=== PATIENT | female | born 1935 | race African-American/Black ===

== ENCOUNTER 2016-07-27 16:38 | Emergency (ER) | payer MEDICAID, MEDICARE, OTHER ==
[~2016-07-27] VITALS: Ht 160 cm; Wt 56.2 kg
[~2016-07-27 16:38] MED LIST: ALPR0.5T PO; AMLO5TAB4 PO; ASCO500C PO; ASPI-39 PO; CALC1TAB PO; CARV12.5 PO; CRESTOR20 MG PO; ESOM40CA PO; HYDR-2868 PO; HYDR-965 PO; LOSA100T2 PO; MULT1TAB6 PO; OMEG-38 PO; TRIA1TAB2 PO
[2016-07-27 19:11] LABS: BASO % 1 % (0-3); EOS % 4 % (0-3); HEMATOCRIT 32.3 % (36.0-47.0); HEMOGLOBIN 10.5 g/dL (12.0-15.5); LYMPH # 1.4 x10^3/uL (1.0-4.8); LYMPH % 28 % (24-48); MEAN CORPUSCULAR HEMOGLOBIN 27 pg (25-35); MEAN CORPUSCULAR HGB CONC 32 g/dL (31-37); MEAN CORPUSCULAR VOLUME 82 fL (79-100); MONO % 10 % (0-9); NEUT % 58 % (31-73); PLATELET COUNT 178 x10^3/uL (140-400); RED BLOOD COUNT 3.94 x10^6/uL (3.50-5.40); RED CELL DISTRIBUTION WIDTH 14.8 % (11.5-14.5)
[2016-07-27 19:25] LABS: CALCIUM 9.8 mg/dL (8.5-10.1); CREATININE 1.2 mg/dL (0.6-1.0); GFR 52.3; POTASSIUM 3.7 mmol/L (3.5-5.1)
[2016-07-27 19:34] LABS: ALBUMIN 3.6 g/dL (3.4-5.0); TOTAL BILIRUBIN 0.2 mg/dL (0.2-1.0); TOTAL PROTEIN 7.1 g/dL (6.4-8.2)
--- NOTE | 2016-07-27 19:47 | RAD ---
INDICATION: 80-year-old female with left eye pain for 1 month, dizziness, headaches once a week, hypertension. COMPARISON: CT head dated April 25, 2012 TECHNIQUE: Axial, noncontrast CT images obtained through the head and facial bones. Coronal and sagittal reformats are provided of the facial bones. One or more of the following individualized dose reduction techniques were utilized for this examination: 1. Automated exposure control; 2. Adjustment of the mA and/or kV according to patient size; 3. Use of iterative reconstruction technique. FINDINGS: No acute intracranial process is identified, specifically no acute blood products, midline shift, mass effect or extra-axial fluid collections. Ventricles and sulci appear appropriate for patient's age. Basilar cisterns are maintained. Mastoid air cells are clear. No calvarial fracture is present. Overlying scalp is intact. No acute fracture or dislocation is seen within the facial bones. Chronic deformity of the medial sood of both orbits are stable, similar to the 2012 exam. Bilateral globes and orbits demonstrate no acute finding, unchanged from previous CT exam. No postseptal or intraconal stranding is present. Paranasal sinuses are clear without air-fluid level. Diffuse osteopenia is present. Degenerative changes seen within the visualized cervical spine. Nasal septum is midline. Overlying soft tissues demonstrate no acute inflammatory changes or focal fluid collection. IMPRESSION: 1. No acute intracranial process. 2. No acute facial bone fracture. Electronically signed by: Lakisha Skelton (Jul 27, 2016 19:46:42)
[2016-07-27] MEDS ORDERED: PRED20TA PO (21:38)
--- NOTE | 2016-07-27 21:38 | PHYS DOC ---
Past Medical History Past Medical History: Cancer, Hypertension Additional Past Medical Histor: lung CA Past Surgical History: Hysterectomy, Tonsillectomy, Other Additional Past Surgical Histo: right lung CA removal; left carpal tunnel Alcohol Use: None Drug Use: None Adult General Chief Complaint Chief Complaint: left eye pain HPI HPI Patient is a 80 year old female complaining of left eye pain and left eye bothering her today. Patient states that her left eye has been bothering her off and on for a couple of months. She saw her marketing forecaster who didn't think there is anything wrong with her eye. She had some sinus x-rays that didn't show anything. She saw her primary care doctor, Dr. Gould, and reports that her sedimentation rate was elevated and she was diagnosed with possible temporal arteritis, she was started on prednisone and her symptoms got quite a bit better while she was taking the prednisone. She took it for a week and her doctor rechecked her sedimentation rate and it was improved so her prednisone was stopped. That was about a week ago and since then her left eye has been bothering her again. She has an achy pain above her left eye. Today she felt like she saw a black spider in her vision but it is now gone. Her vision seems pretty good right now. She has a headache on the whole left side of her head, her left rastafari and left jaw area are sore and achy. She has not had a fever. She went home from work today because of her symptoms and when she went home she checked her blood pressure and it was elevated. She had reported the complaint of "palpitations" when triaged, however, I believe that was really the way she was describing her elevated blood pressure, because she did not have any complaint of any sensation of heart palpitations when I talked to her. Study Lead Dr. Cardona PCP Dr. Gould Review of Systems Review of Systems Constitutional: Denies fever or chills [] Eyes: As in history of present illness HENT: Denies nasal congestion or sore throat [] Respiratory: Denies cough or shortness of breath [] Cardiovascular: No chest pain or palpitations, complains of elevated blood pressure today GI: Denies abdominal pain, nausea, vomiting, bloody stools or diarrhea [] : Denies dysuria or hematuria [] Musculoskeletal: Denies back pain or joint pain [] Integument: Denies rash or skin lesions [] Neurologic: Denies focal weakness or sensory changes [] Current Medications Current Medications Current Medications Medications (Trade) Dose Ordered Sig/Enrique Start Time Stop Time Status Last Admin Dose Admin Prednisone (Prednisone) 60 mg 1X ONCE 07/27/16 21:45 07/27/16 21:46 DC 07/27/16 21:41 60 MG Allergies Allergies Allergies Coded Allergies Type Severity Reaction Last Updated Verified No Known Drug Allergies 05/06/13 No Physical Exam Physical Exam Constitutional: Well developed, well nourished, no acute distress, non-toxic appearance. Alert, mentating normally. HENT: Normocephalic, atraumatic, bilateral external ears normal, oropharynx moist, no oral exudates, nose normal. Left temporal artery is not palpable and nontender. Eyes: PERRLA, EOMI, conjunctiva normal, no discharge. No abnormality of lids or lashes, no swelling or redness around the left eye. Neck: Normal range of motion, no tenderness, supple, no stridor. [] Cardiovascular:Heart rate regular rhythm, no murmur [] Lungs & Thorax: Bilateral breath sounds clear to auscultation [] Skin: Warm, dry, no erythema, no rash. [] Extremities: No tenderness, no cyanosis, no clubbing, ROM intact, no edema. [] Neurologic: Alert and oriented X 3, normal motor function, normal sensory function, no focal deficits noted. [] Current Patient Data Vital Signs Vital Signs Date Time Temp Pulse Resp B/P Pulse Ox O2 Delivery O2 Flow Rate FiO2 07/27/16 21:40 52 20 161/70 100 Room Air 07/27/16 17:20 98.1 98.1 Lab Values Laboratory Tests Test 07/27/16 19:03 White Blood Count 5.0x10^3/uL (4.0-11.0) Red Blood Count 3.94x10^6/uL (3.50-5.40) Hemoglobin 10.5g/dL (12.0-15.5) L Hematocrit 32.3% (36.0-47.0) L Mean Corpuscular Volume 82fL (79-100) Mean Corpuscular Hemoglobin 27pg (25-35) Mean Corpuscular Hemoglobin Concent 32g/dL (31-37) Red Cell Distribution Width 14.8% (11.5-14.5) H Platelet Count 178x10^3/uL (140-400) Neutrophils (%) (Auto) 58% (31-73) Lymphocytes (%) (Auto) 28% (24-48) Monocytes (%) (Auto) 10% (0-9) H Eosinophils (%) (Auto) 4% (0-3) H Basophils (%) (Auto) 1% (0-3) Neutrophils # (Auto) 2.9x10^3uL (1.8-7.7) Lymphocytes # (Auto) 1.4x10^3/uL (1.0-4.8) Monocytes # (Auto) 0.5x10^3/uL (0.0-1.1) Eosinophils # (Auto) 0.2x10^3/uL (0.0-0.7) Basophils # (Auto) 0.0x10^3/uL (0.0-0.2) Erythrocyte Sedimentation Rate 50 (0-25) H Sodium Level 144mmol/L (136-145) Potassium Level 3.7mmol/L (3.5-5.1) Chloride Level 108mmol/L (98-107) H Carbon Dioxide Level 27mmol/L (21-32) Anion Gap 9 (6-14) Blood Urea Nitrogen 27mg/dL (7-20) H Creatinine 1.2mg/dL (0.6-1.0) H Estimated GFR (Cockcroft-Gault) 52.3 BUN/Creatinine Ratio 23 (6-20) H Glucose Level 92mg/dL (70-99) Calcium Level 9.8mg/dL (8.5-10.1) Total Bilirubin 0.2mg/dL (0.2-1.0) Aspartate Amino Transferase (AST) 19U/L (15-37) Alanine Aminotransferase (ALT) 18U/L (14-59) Alkaline Phosphatase 51U/L (46-116) Total Protein 7.1g/dL (6.4-8.2) Albumin 3.6g/dL (3.4-5.0) Albumin/Globulin Ratio 1.0 (1.0-1.7) Laboratory Tests 07/27/16 19:03 Laboratory Tests 07/27/16 19:03 EKG EKG 12-lead EKG read by me. Sinus rhythm. Heart rate 52. There are no acute ST or T wave changes indicative of ischemia or infarction. No STEMI. 1732 [] Radiology/Procedures Radiology/Procedures CT scan of the head and maxillofacial interpreted by the radiologist. No acute findings. [] Course & Med Decision Making Course & Med Decision Making Pertinent Labs and Imaging studies reviewed. (See chart for details) 80-year-old female presents with complaints of pain around the left eye, diagnosis of possible temporal arteritis recently, completed a short course of prednisone with improvement of symptoms but now the symptoms are back. I decided to scan her head and maxillofacial today and that is unremarkable. I checked a sedimentation rate which is elevated at 50, however the patient is 80 years old. I spoke with the patient's primary care doctor, Dr. Gould. She told me that when she first diagnosed the patient with possible temporal arteritis a couple of weeks ago, her sedimentation rate was 80. After a week of prednisone and it had improved to 44. I spoke with the patient's marketing forecaster, Dr. Cardona. He will see the patient tomorrow morning in the office. We agreed to start her on prednisone tonight at 60 mg. She will call the office tomorrow for an appointment. He is not convinced with a sedimentation rate of 50 that she has temporal arteritis but it was 80 the first time it was checked a few weeks ago. He will assume care and ensure follow-up is appropriate. I discussed the plan with the patient, discussed with her that I have spoken to both of her physicians, we will start her on 60 mg daily of prednisone, she was given her first dose in the emergency department. She'll see Dr. Carodna tomorrow morning. [] Dragon Disclaimer Dragon Disclaimer This electronic medical record was generated, in whole or in part, using a voice recognition dictation system. Departure Departure Impression: Primary Impression: Temporal arteritis Disposition: 01 HOME, SELF-CARE Condition: STABLE Referrals: MADI GOULD MD (PCP) Patient Instructions: Temporal Arteritis Additional Instructions: Tonight, your sedimentation rate was 50. That is elevated and may indicate temporal arteritis. I discussed your case with Dr. Gould and Dr. Cardona. We decided to put you back on prednisone, you have had your first dose here in the emergency department tonight. You will take 60 mg daily until otherwise instructed by Dr. Cardona or Dr. Gould. Call the office tomorrow morning at 9:00 to make arrangements to be seen by Dr. Cardona. [facility] and [facility] wants to [facility] you on . Call Dr. Gould's office to make a return appointment as well. Scripts Prednisone 20 Mg Tablet3 Tab PO DAILY #60 TAB For temporal arteritis Take 60 mg (3 pills) every morning to start, until instructed otherwise by your doctor Prov:ELENITA MAJANO MD 07/27/16 ELENITA MAJANO MD Jul 27, 2016 21:38
[2016-07-27 21:40] VITALS: BP 161/70
[2016-07-27] MEDS ORDERED: PREDNISONE 20 MG TABLET PO ONE (21:45)
--- NOTE | 2016-07-28 06:34 | EKG ---
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
== END 2016-07-27 21:52 | disposition home or self-care (01) ==
LOC: ER 16:38
DX: M31.6 Other giant cell arteritis (principal); I10 Essential (primary) hypertension
CPT/HCPCS: 36415; 70450; 70486; 80053; 85027; 85651; 93005; 99285; J7512

== ENCOUNTER 2016-08-24 10:15 | Emergency (ER) | payer OTHER ==
[~2016-08-24 10:15] MED LIST changes: +PRED20TA PO
[2016-08-24 11:22] LABS: BASO # 0.1 x10^3/uL (0.0-0.2); BASO % 1 % (0-3); EOS % 2 % (0-3); HEMATOCRIT 33.2 % (36.0-47.0); HEMOGLOBIN 10.8 g/dL (12.0-15.5); LYMPH # 0.9 x10^3/uL (1.0-4.8); LYMPH % 11 % (24-48); MEAN CORPUSCULAR HEMOGLOBIN 27 pg (25-35); MEAN CORPUSCULAR HGB CONC 32 g/dL (31-37); MEAN CORPUSCULAR VOLUME 82 fL (79-100); MONO % 5 % (0-9); NEUT % 82 % (31-73); PLATELET COUNT 172 x10^3/uL (140-400); RED BLOOD COUNT 4.03 x10^6/uL (3.50-5.40); RED CELL DISTRIBUTION WIDTH 16.1 % (11.5-14.5); WHITE BLOOD COUNT 8.9 x10^3/uL (4.0-11.0)
--- NOTE | 2016-08-24 11:30 | RAD ---
PORTABLE CHEST 1V Indication:CHEST PAIN AND COUGH X 5 DAYS
PRODUCTIVE COUGH X TODAY FINDINGS: There is a small right pleural effusion. Heart size is normal. Surgical clips are noted in the right lung base. No pneumothorax. No consolidating infiltrate. Impression: Small right pleural effusion Electronically signed by: Silvestre Melgoza (Aug 24, 2016 11:29:28)
[2016-08-24 11:35] LABS: INR 1.1 (0.8-1.1); PROTHROMBIN TIME PATIENT 13.9 SEC (11.7-14.0)
[2016-08-24 11:36] LABS: ALBUMIN 3.6 g/dL (3.4-5.0); CALCIUM 10.2 mg/dL (8.5-10.1); CREATININE 1.2 mg/dL (0.6-1.0); DIRECT BILIRUBIN 0.1 mg/dL (0.0-0.2); GFR 52.2; POTASSIUM 3.8 mmol/L (3.5-5.1); TOTAL BILIRUBIN 0.5 mg/dL (0.2-1.0); TOTAL PROTEIN 6.6 g/dL (6.4-8.2)
--- NOTE | 2016-08-24 12:34 | PHYS DOC ---
Past Medical History Past Medical History: Cancer, Hypertension Additional Past Medical Histor: lung CA Past Surgical History: Hysterectomy, Tonsillectomy, Other Additional Past Surgical Histo: right lung CA removal; left carpal tunnel Alcohol Use: None Drug Use: None Adult General Chief Complaint Chief Complaint: COUGH HPI HPI Patient is a 81 year old -[place] female who presents with a cough for the last several days. She states she has a history of COPD that is mild. She does have a nebulizer at home. She denies any fevers chills, she does have a nonproductive cough occasionally. She does admit to have some shortness of breath occasionally. She states she was recently diagnosed with temporal arteritis and was on prednisone 60 mg and then weaned down to 5 mg a day now. Denies any cardiac history and states she had a negative stress test many years ago. Review of Systems Review of Systems Constitutional: Denies fever or chills [] Eyes: Denies change in visual acuity, redness, or eye pain [] HENT: Denies nasal congestion or sore throat [] Respiratory: Positive for intermittent cough and shortness of breath occasionally. Cardiovascular: No additional information not addressed in HPI [] GI: Denies abdominal pain, nausea, vomiting, bloody stools or diarrhea [] : Denies dysuria or hematuria [] Musculoskeletal: Denies back pain or joint pain [] Integument: Denies rash or skin lesions [] Neurologic: Denies headache, focal weakness or sensory changes [] Endocrine: Denies polyuria or polydipsia [] Allergies Allergies Allergies Coded Allergies Type Severity Reaction Last Updated Verified No Known Drug Allergies 05/06/13 No Physical Exam Physical Exam Constitutional: Well developed, well nourished, no acute distress, non-toxic appearance. [] HENT: Normocephalic, atraumatic, bilateral external ears normal, oropharynx moist, no oral exudates, nose normal. [] Eyes: PERRLA, EOMI, conjunctiva normal, no discharge. [] Neck: Normal range of motion, no tenderness, supple, no stridor. [] Cardiovascular:Heart rate regular rhythm, no murmur [] Lungs & Thorax: Bilateral breath sounds clear to auscultation [] Abdomen: Bowel sounds normal, soft, no tenderness, no masses, no pulsatile masses. [] Skin: Warm, dry, no erythema, no rash. [] Back: No tenderness, no CVA tenderness. [] Extremities: No tenderness, no cyanosis, no clubbing, ROM intact, no edema. [] Neurologic: Alert and oriented X 3, normal motor function, normal sensory function, no focal deficits noted. [] Psychologic: Affect normal, judgement normal, mood normal. [] Current Patient Data Lab Values Laboratory Tests Test 08/24/16 10:39 White Blood Count 8.9x10^3/uL (4.0-11.0) Red Blood Count 4.03x10^6/uL (3.50-5.40) Hemoglobin 10.8g/dL (12.0-15.5) L Hematocrit 33.2% (36.0-47.0) L Mean Corpuscular Volume 82fL (79-100) Mean Corpuscular Hemoglobin 27pg (25-35) Mean Corpuscular Hemoglobin Concent 32g/dL (31-37) Red Cell Distribution Width 16.1% (11.5-14.5) H Platelet Count 172x10^3/uL (140-400) Neutrophils (%) (Auto) 82% (31-73) H Lymphocytes (%) (Auto) 11% (24-48) L Monocytes (%) (Auto) 5% (0-9) Eosinophils (%) (Auto) 2% (0-3) Basophils (%) (Auto) 1% (0-3) Neutrophils # (Auto) 7.3x10^3uL (1.8-7.7) Lymphocytes # (Auto) 0.9x10^3/uL (1.0-4.8) L Monocytes # (Auto) 0.4x10^3/uL (0.0-1.1) Eosinophils # (Auto) 0.1x10^3/uL (0.0-0.7) Basophils # (Auto) 0.1x10^3/uL (0.0-0.2) Prothrombin Time 13.9SEC (11.7-14.0) Prothrombin Time INR 1.1 (0.8-1.1) PTT 28SEC (24-38) Sodium Level 144mmol/L (136-145) Potassium Level 3.8mmol/L (3.5-5.1) Chloride Level 106mmol/L (98-107) Carbon Dioxide Level 31mmol/L (21-32) Anion Gap 7 (6-14) Blood Urea Nitrogen 17mg/dL (7-20) Creatinine 1.2mg/dL (0.6-1.0) H Estimated GFR (Cockcroft-Gault) 52.2 Glucose Level 101mg/dL (70-99) H Calcium Level 10.2mg/dL (8.5-10.1) H Total Bilirubin 0.5mg/dL (0.2-1.0) Direct Bilirubin 0.1mg/dL (0.0-0.2) Aspartate Amino Transferase (AST) 20U/L (15-37) Alanine Aminotransferase (ALT) 21U/L (14-59) Alkaline Phosphatase 47U/L (46-116) Troponin I Quantitative 0.022ng/mL (0.000-0.055) LS-Bnu-T-Type Natriuretic Peptide 656pg/mL (0-449) H Total Protein 6.6g/dL (6.4-8.2) Albumin 3.6g/dL (3.4-5.0) Laboratory Tests 08/24/16 10:39 Laboratory Tests 08/24/16 10:39 EKG EKG EKG shows sinus rhythm with a rate of [address] elevations or T- wave inversions, normal axis, QTC 398 ms, as interpreted by me. Radiology/Procedures Radiology/Procedures [facility] [address] [place] [address] IMAGING REPORT Signed PATIENT: JESSICA IRVIN ACCOUNT: [id number] : 1935 LOCATION: ER AGE: 81 SEX: F EXAM STATUS: PRE ER ORD. PHYSICIAN: NON,STAFF REASON: chest pain, productive cough PROCEDURE: PORTABLE CHEST 1V PORTABLE CHEST 1V Indication:CHEST PAIN AND COUGH X 5 DAYS
PRODUCTIVE COUGH X TODAY FINDINGS: There is a small right pleural effusion. Heart size is normal. Surgical clips are noted in the right lung base. No pneumothorax. No consolidating infiltrate. Impression: Small right pleural effusion Electronically signed by: Silvestre Melgoza (Aug 24, 2016 11:29:28) DICTATED and SIGNED BY: SILVSETRE MELGOZA MD DATE: 08/24/16 1129 CC: MADI GOULD MD; NON,STAFF ~ Impressions: Mild COPD exacerbation Course & Med Decision Making Course & Med Decision Making Pertinent Labs and Imaging studies reviewed. (See chart for details) Patient's chest x-ray shows a small pleural effusion, her labs, EKG and other workup do not show any acute abnormalities. She is being discharged with 4 days of 40 mg prednisone and a Z-Dom. She is instructed to use her inhaler at home as needed. She'll follow up with primary care physician within the next week regarding her pleural effusion, return the ER for worsening shortness of breath or other concerns. Dragon Disclaimer Dragon Disclaimer This electronic medical record was generated, in whole or in part, using a voice recognition dictation system. Departure Departure Impression: Primary Impression: Cough Disposition: 01 HOME, SELF-CARE Condition: STABLE Referrals: MADI GOULD MD (PCP) Patient Instructions: Cough, Adult, [id number] Additional Instructions: Your chest x-ray shows a small amount of fluid around your lung. You do not show any signs of infection. You are being discharged home with a Z-Dom and prednisone for 4 days. You will need to follow-up with her primary care physician within the next week especially regarding the fluid around her lung. Return the ER for worsening shortness of breath cough, fevers or other concerns. Scripts Promethazine Hcl/Codeine (Promethazine-Codeine Syrup)118 Ml Syrup5 Ml PO Q4- 6HRS #120 ML Prov:ITZEL HARO MD 08/24/16 Azithromycin (Azithromycin Tablet)250 Mg Tablet1 Pkg PO UD #6 TAB Prov:ITZEL HARO MD 08/24/16 Prednisone 20 Mg [id number] Mg PO DAILY 4 Days Prov:ITZEL HARO MD 08/24/16 ITZEL HARO MD Aug 24, 2016 12:34
[2016-08-24] MEDS ORDERED: PRED20TA PO (12:44)
[2016-08-24] MEDS ORDERED: AZIT250T6 PO (12:44)
[2016-08-24] MEDS ORDERED: PROM118S2 PO (13:00)
--- NOTE | 2016-08-24 15:44 | EKG ---
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
== END 2016-08-24 13:05 | disposition home or self-care (01) ==
LOC: ER 10:27
DX: R05 Cough (principal); I10 Essential (primary) hypertension; J44.9 Chronic obstructive pulmonary disease, unspecified; Z90.89 Acquired absence of other organs
CPT/HCPCS: 36415; 71010; 80048; 80076; 83880; 84484; 85027; 85610; 85730; 93005; 99285-25

== ENCOUNTER 2016-10-28 13:21 | Inpatient (IN) | payer OTHER ==
[~2016-10-28] VITALS: Ht 160 cm; Wt 58.5 kg
[~2016-10-28 13:21] MED LIST changes: +AZIT250T6 PO; +PROM118S2 PO
--- NOTE | 2016-10-28 13:28 | PHYS DOC ---
Past Medical History Past Medical History: Cancer, Hypertension Additional Past Medical Histor: lung CA Past Surgical History: Hysterectomy, Tonsillectomy, Other Additional Past Surgical Histo: right lung CA removal; left carpal tunnel Alcohol Use: None Drug Use: None Adult General Chief Complaint Chief Complaint: LOWER EXTREMITY EDEMA HPI HPI Patient is a 81 year old -Russian Russian female who presents with left lower extremity edema. She states this started about 2 weeks ago is been intermittent in the last 2 days ago at worse. She states today she started feeling some shortness of breath should with ambulation that just started on her way to the ER today. She denies any chest pain fevers or chills. He also complains of pain in the posterior aspect of her left calf in addition to some anterior left-sided chest discomfort. She states she's had a stress test but is been to many years ago to count. She does have a history of lung cancer and had a resection approximate years ago and states that she is cancer free and had negative CT scan recently. She also has a history of hypertension and dyslipidemia in addition tobacco abuse. Review of Systems Review of Systems Constitutional: Denies fever or chills [] Eyes: Denies change in visual acuity, redness, or eye pain [] HENT: Denies nasal congestion or sore throat [] Respiratory: Denies cough or shortness of breath [] Cardiovascular: No additional information not addressed in HPI [] GI: Denies abdominal pain, nausea, vomiting, bloody stools or diarrhea [] : Denies dysuria or hematuria [] Musculoskeletal: Denies back pain or joint pain [] Integument: Denies rash or skin lesions [] Neurologic: Denies headache, focal weakness or sensory changes [] Endocrine: Denies polyuria or polydipsia [] Current Medications Current Medications Allergies Allergies Allergies Coded Allergies Type Severity Reaction Last Updated Verified No Known Drug Allergies 05/06/13 No Physical Exam Physical Exam Constitutional: Well developed, well nourished, no acute distress, non-toxic appearance. [] HENT: Normocephalic, atraumatic, bilateral external ears normal, oropharynx moist, no oral exudates, nose normal. [] Eyes: PERRLA, EOMI, conjunctiva normal, no discharge. [] Neck: Normal range of motion, no tenderness, supple, no stridor. [] Cardiovascular:Heart rate regular rhythm, no murmur [] Lungs & Thorax: Bilateral breath sounds clear to auscultation [] Abdomen: Bowel sounds normal, soft, no tenderness, no masses, no pulsatile masses. [] Skin: Warm, dry, no erythema, no rash. [] Back: No tenderness, no CVA tenderness. [] Extremities: No tenderness, no cyanosis, no clubbing, ROM intact, 2+ lower left extremity edema at the ankle. Neurologic: Alert and oriented X 3, normal motor function, normal sensory function, no focal deficits noted. [] Psychologic: Affect normal, judgement normal, mood normal. [] Current Patient Data Vital Signs Vital Signs Date Time Temp Pulse Resp B/P (MAP) Pulse Ox O2 Delivery O2 Flow Rate FiO2 10/28/16 17:00 64 20 147/67 (93) 100 Room Air 10/28/16 13:34 98.3 98.3 Lab Values Laboratory Tests Test 10/28/16 13:45 White Blood Count 8.2 x10^3/uL (4.0-11.0) Red Blood Count 3.62 x10^6/uL (3.50-5.40) Hemoglobin 10.0 g/dL (12.0-15.5) L Hematocrit 30.8 % (36.0-47.0) L Mean Corpuscular Volume 85 fL (79-100) Mean Corpuscular Hemoglobin 28 pg (25-35) Mean Corpuscular Hemoglobin Concent 32 g/dL (31-37) Red Cell Distribution Width 15.4 % (11.5-14.5) H Platelet Count 176 x10^3/uL (140-400) Neutrophils (%) (Auto) 86 % (31-73) H Lymphocytes (%) (Auto) 10 % (24-48) L Monocytes (%) (Auto) 3 % (0-9) Eosinophils (%) (Auto) 0 % (0-3) Basophils (%) (Auto) 1 % (0-3) Neutrophils # (Auto) 7.1 x10^3uL (1.8-7.7) Lymphocytes # (Auto) 0.8 x10^3/uL (1.0-4.8) L Monocytes # (Auto) 0.2 x10^3/uL (0.0-1.1) Eosinophils # (Auto) 0.0 x10^3/uL (0.0-0.7) Basophils # (Auto) 0.1 x10^3/uL (0.0-0.2) Segmented Neutrophils % 83 % (35-66) H Band Neutrophils % 7 % (0-9) Lymphocytes % 6 % (24-48) L Monocytes % 3 % (0-10) Basophils % 1 % (0-3) Platelet Estimate Adequate (ADEQUATE) Sodium Level 142 mmol/L (136-145) Potassium Level 4.6 mmol/L (3.5-5.1) Chloride Level 104 mmol/L (98-107) Carbon Dioxide Level 29 mmol/L (21-32) Anion Gap 9 (6-14) Blood Urea Nitrogen 41 mg/dL (7-20) H Creatinine 1.8 mg/dL (0.6-1.0) H Estimated GFR (Cockcroft-Gault) 32.7 Glucose Level 376 mg/dL (70-99) H Calcium Level 9.7 mg/dL (8.5-10.1) Total Bilirubin 0.2 mg/dL (0.2-1.0) Direct Bilirubin 0.1 mg/dL (0.0-0.2) Aspartate Amino Transferase (AST) 19 U/L (15-37) Alanine Aminotransferase (ALT) 30 U/L (14-59) Alkaline Phosphatase 48 U/L (46-116) Creatine Kinase 60 U/L (26-192) Creatine Kinase MB (Mass) 1.3 ng/mL (0.0-3.6) Creatine Kinase MB Relative Index 2.2 % (0-4) Troponin I Quantitative 0.034 ng/mL (0.000-0.055) IR-Rrv-T-Type Natriuretic Peptide 274 pg/mL (0-449) Total Protein 6.2 g/dL (6.4-8.2) L Albumin 3.3 g/dL (3.4-5.0) L Thyroid Stimulating Hormone (TSH) 0.456 uIU/mL (0.358-3.74) Laboratory Tests 10/28/16 13:45 Laboratory Tests 10/28/16 13:45 EKG EKG G shows normal sinus rhythm with rate of 79 beats were without any ST elevations , T-wave inversion noted in lead 3, normal axis, QTC 4 ms, as interpreted by me. Radiology/Procedures Radiology/Procedures [place] [id number] IMAGING REPORT Signed PATIENT: JESSICA IRVIN ACCOUNT: [id number] : 1935 LOCATION: ER AGE: 81 SEX: F EXAM STATUS: REG ER ORD. PHYSICIAN: ITZEL HARO MD REASON: swelling of left leg PROCEDURE: VENOUS LOWER EXTREMITY LEFT Indication lower extremity swelling. Pain. Grayscale color Doppler and spectral imaging was performed. The examination was targeted to the veins of the left lower extremity. The common femoral, femoral and popliteal vessels demonstrate normal flow compressibility and augmentation. No thrombus is seen. The visualized calf veins appeared unremarkable. The peroneal vein was not, however, well demonstrated. Note was made during the examination of a fluid collection in the popliteal space compatible with a popliteal cyst. This measured approximately 4.3 cm in greatest dimension. IMPRESSION: Negative study for DVT. Left popliteal cyst DICTATED and SIGNED BY: MARQUES RODGERS MD DATE: 10/28/161446 CC: ITZEL HARO MD; MADI GOULD MD ~ [place] [id number] IMAGING REPORT Signed PATIENT: JESSICA IRVIN ACCOUNT: [id number] : 1935 LOCATION: ER AGE: 81 SEX: F EXAM STATUS: REG ER ORD. PHYSICIAN: ITZEL HARO MD REASON: edema of legs PROCEDURE: PORTABLE CHEST 1V Portable chest, 10/28/2016: History: Shortness of breath, hypertension Comparison is made to a study from 08/30/2016. The heart size is normal. There is moderate calcific plaquing of the aorta including the ascending aorta. The pulmonary vascularity is normal. There are surgical sutures in the infrahilar region on the right. Blunting of the right lateral costophrenic angle is unchanged and is likely due to scarring. Pleural fluid cannot be entirely excluded. No pulmonary infiltrates are seen. There is no evidence of pleural fluid. IMPRESSION: 1. Chronic right basilar pleural thickening probably due to scarring. 2. No acute cardiopulmonary abnormality is detected. DICTATED and SIGNED BY: GERMAINE BOLAND MD DATE: 10/28/16 1428 CC: ITZEL HARO MD; MADI GOULD MD ~ Impressions: Chest pain Dyspnea with exertion Course & Med Decision Making Course & Med Decision Making Pertinent Labs and Imaging studies reviewed. (See chart for details) Labs, EKG, sounded left lower extremity does not show any DVT. She has had some dyspnea with exertion and low blood chest discomfort ER. Her renal function will allow for CT scan just we'll go ahead and give a dose of Lovenox and admit for possible VQ scan. Patient's in stable condition and agreeable plan at this time. Dragon Disclaimer Dragon Disclaimer This electronic medical record was generated, in whole or in part, using a voice recognition dictation system. Departure Departure Impression: Primary Impression: Chest pain Disposition: ADMITTED INPATIENT Admitting Physician: Fran Pritchett Condition: STABLE Referrals: MADI GOULD MD (PCP) Problem Qualifiers Primary Impression: Chest pain Chest pain type: unspecified Qualified Codes: R07.9 - Chest pain, unspecified ITZEL HARO MD Oct 28, 2016 13:28
--- NOTE | 2016-10-28 14:21 | EKG ---
[facility] [address] [place] [address] Test Date: 2016-10-28 Test Time: 13:32:34 Pat Name: JESSICA IRVIN Department: Room: Gender: F Bobtailer: : 1935 Requested By: ITZEL HARO Order Number: [id number] Reading MD: Carmen Potter Measurements Intervals [place] Rate: 79 P: 45 [place]: 138 QRS: 36 QRSD: 70 T: -6 QT: 344 QTc: 400 Interpretive Statements SINUS RHYTHM ATRIAL PREMATURE COMPLEX(ES) NON SPECIFIC T ABNORMALITY Electronically Signed On 10-29-2016 19:38:56 CDT by Carmen Potter
[2016-10-28 14:27] LABS: CALCIUM 9.7 mg/dL (8.5-10.1); CREATININE 1.8 mg/dL (0.6-1.0); GFR 32.7; POTASSIUM 4.6 mmol/L (3.5-5.1)
[2016-10-28 14:28] LABS: BASO # 0.1 x10^3/uL (0.0-0.2); BASO % 1 % (0-3); EOS % 0 % (0-3); HEMATOCRIT 30.8 % (36.0-47.0); LYMPH # 0.8 x10^3/uL (1.0-4.8); LYMPH % 10 % (24-48); MEAN CORPUSCULAR HEMOGLOBIN 28 pg (25-35); MEAN CORPUSCULAR HGB CONC 32 g/dL (31-37); MEAN CORPUSCULAR VOLUME 85 fL (79-100); MONO % 3 % (0-9); NEUT % 86 % (31-73); PLATELET COUNT 176 x10^3/uL (140-400); RED BLOOD COUNT 3.62 x10^6/uL (3.50-5.40); RED CELL DISTRIBUTION WIDTH 15.4 % (11.5-14.5); WHITE BLOOD COUNT 8.2 x10^3/uL (4.0-11.0)
[2016-10-28 14:31] LABS: ALBUMIN 3.3 g/dL (3.4-5.0); DIRECT BILIRUBIN 0.1 mg/dL (0.0-0.2); TOTAL BILIRUBIN 0.2 mg/dL (0.2-1.0); TOTAL PROTEIN 6.2 g/dL (6.4-8.2)
--- NOTE | 2016-10-28 14:31 | RAD ---
Portable chest, 10/28/2016: History: Shortness of breath, hypertension Comparison is made to a study from 08/30/2016. The heart size is normal. There is moderate calcific plaquing of the aorta including the ascending aorta. The pulmonary vascularity is normal. There are surgical sutures in the infrahilar region on the right. Blunting of the right lateral costophrenic angle is unchanged and is likely due to scarring. Pleural fluid cannot be entirely excluded. No pulmonary infiltrates are seen. There is no evidence of pleural fluid. IMPRESSION: 1. Chronic right basilar pleural thickening probably due to scarring. 2. No acute cardiopulmonary abnormality is detected.
[2016-10-28 14:35] LABS: CKMB MASS 1.3 ng/mL (0.0-3.6)
--- NOTE | 2016-10-28 14:51 | RAD ---
Indication lower extremity swelling. Pain. Grayscale color Doppler and spectral imaging was performed. The examination was targeted to the veins of the left lower extremity. The common femoral, femoral and popliteal vessels demonstrate normal flow compressibility and augmentation. No thrombus is seen. The visualized calf veins appeared unremarkable. The peroneal vein was not, however, well demonstrated. Note was made during the examination of a fluid collection in the popliteal space compatible with a popliteal cyst. This measured approximately 4.3 cm in greatest dimension. IMPRESSION: Negative study for DVT. Left popliteal cyst
[2016-10-28 16:40] LABS: % BASOS 1 % (0-3); PLT ESTIMATE ADEQUATE (ADEQUATE)
[2016-10-28] MEDS ORDERED: ONDANSETRON PF 4 MG/2 ML VIAL. IV PRN (17:45)
[2016-10-28] MEDS ORDERED: CRESTOR5 MG PO (20:09)
[2016-10-28] MEDS ORDERED: PRED-220 PO (20:09)
[2016-10-28 20:20] VITALS: BP 108/62
[2016-10-28] MEDS ORDERED: PROMETH/CODEINE 6.25/10MG 5 ML SYRUP. PO PRN (20:30)
[2016-10-28] MEDS ORDERED: ALPRAZolam 0.5 MG TABLET PO PRN (20:30)
[2016-10-28] MEDS ORDERED: ATORVASTATIN CALCIUM 20 MG TABLET PO SCH (21:00)
[2016-10-28] MEDS: CARVEDILOL 12.5 MG TABLET. PO SCH (21:33)
[2016-10-28] MEDS: hydrALAZINE 25 MG TABLET PO SCH (21:34)
[2016-10-28] MEDS: HYDROcodone/APAP 7.5/325MG 1 TAB TABLET PO PRN (22:32)
[2016-10-28] MEDS ORDERED: POLY17PO29 PO (23:13)
[2016-10-28 23:17] VITALS: BP 122/57
--- NOTE | 2016-10-29 01:21 | ACF ---
Admission Forms Criteria CHEST PAIN Clinical Indications for Admission to Inpatient Care (Place 'X' for any and all applicable criteria): Admission is indicated for chest pain and ANY ONE of the following(1)(2)(3)(4)(5 ): [ ]I. Angina with acute coronary syndrome (Also use Myocardial Infarction or Angina guideline) [ ]II. Hemodynamic instability [ ]III. Angina needing acute intervention as indicated by ALL of the following( 11)(12): [ ]a) Unstable angina is present as indicated by angina that is ANY ONE of the following: [ ]i) New onset [ ]ii) Nocturnal [ ]iii) Prolonged at rest [ ]iv) Progressive [ ]b) Angina warrants acute intervention as indicated by ANY ONE of the following: [ ]i) Recurrent angina (e.g, not responding as previously to treatment) [ ]ii) Angina at rest or with low-level activities despite initial medical therapy [ ]iii) New or presumably new ST-segment depression on ECG [ ]iv) Signs or symptoms of heart failure (eg, dyspnea, pulmonary edema) [ ]v) New or worsening mitral regurgitation [ ]vi) Hemodynamic instability [ ]vii) Dangerous arrhythmia (eg, sustained ventricular tachycardia) [ ]viii) History of percutaneous coronary intervention within 6 months [ ]ix) History of coronary artery bypass graft surgery [ ]x) FRANK risk score of 2 or greater[A] [ ]xi) History of Diabetes(14) [ ]xii) High-risk cardiac ischemia findings on noninvasive testing (e.g, echocardiogram, treadmill testing, nuclear scan) [ ]xiii) Chronic renal insufficiency (ie, estimated GFR less than 60 mL/min/1.732m) [ ]xiv) Left ventricular ejection fraction less than 40% [ ]IV. Evidence of MT (eg, cardiac biomarkers positive, ST-segment elevation on ECG) also use Myocardial Infarction Criteria Form. [ ]V. Pulmonary edema [ ]. Respiratory distress [ ]VII. Chest pain indicative of serious diagnosis other than coronary artery disease (eg, aortic dissection) [ ]VIII. Contraindications and/or Inappropriate clinical situations for Observational Care in patients with Chest Pain, when ANY ONE of the following is required: [ ]a) Patient with risk factor for pulmonary embolism, acute coronary syndrome and myocardial infarction (18) [ ]b) Patient with Pulmonary embolism require an average LOS of 4.3 days, therefore emergency department observation management is inappropriate 18,23 [ ]c) Painful condition/s in the elderly, have the highest rate of recidivism after emergency department observation management (10.8%) 20,21,22 [ ]d) Elevated cardiac biomarker requires intensive and exhaustive care (19) [X]IX. General contraindications and/or Inappropriate clinical situations for Observational Care in patients with Chest Pain, when ANY ONE of the following is required: [X]a) Prediction of prolongation of LOS based on ANY ONE of the following may be considered as a contraindication for observational care 2, 3, 4, 5, 6, 7, 8, 9, 10, 11 [X]i) Age > 65 yrs. [ ]ii) Patient arriving by ambulance [ ]iii) Patient with high acuity [ ]iv) Patient requiring vital sign monitoring [ ]v) Patient on IV medication [ ]b) Systolic blood pressures 180mmHg 3,12 [ ]c) Patient with altered mental status including delirium and other alteration of consciousness, (3) [ ]d) Patient whose discharge disposition will be to a fdc home or rehabilitation home should not be managed in Emergency Department Observation Unit. CMS rule requires 3 days hospital stay before such placement. 3,13 [ ]e) Patient with failure to thrive due to broad array of etiologies 3,16,17 [ ]f) Inability to ambulate 3,14 Extended stay beyond goal length of stay may be needed for (1)(28): [ ]a) Specific condition diagnosed after evaluation (eg, pulmonary embolism, aortic dissection) [ ]b) Unstable angina [ ]c) Continued suspicion of acute coronary syndrome with inability to complete needed cardiac evaluation (eg, patient clinically unable to undergo stress testing) [ ]d) Myocardial infarction (Contents from ANGINA and CHEST PAIN clinical indications for admission to inpatient care have been integrated in this form) The original [facility] content created by [employer] has been revised. The portions of the content which have been revised are identified through the use of italic text or in bold, and [facility] has neither reviewed nor approved the modified material. All other unmodified content is copyright [facility]. Please see references footnoted in the original [facility] edition 2016 Admission Criteria Met?: Yes EDISON INGRAM Oct 29, 2016 01:21
[2016-10-29 03:08] VITALS: BP 108/57
[2016-10-29 05:23] LABS: BASO % 0 % (0-3); EOS % 0 % (0-3); HEMATOCRIT 28.4 % (36.0-47.0); HEMOGLOBIN 9.4 g/dL (12.0-15.5); LYMPH % 13 % (24-48); MEAN CORPUSCULAR HEMOGLOBIN 28 pg (25-35); MEAN CORPUSCULAR HGB CONC 33 g/dL (31-37); MEAN CORPUSCULAR VOLUME 85 fL (79-100); MONO % 7 % (0-9); NEUT % 80 % (31-73); PLATELET COUNT 179 x10^3/uL (140-400); RED BLOOD COUNT 3.34 x10^6/uL (3.50-5.40); RED CELL DISTRIBUTION WIDTH 15.6 % (11.5-14.5)
[2016-10-29 05:39] LABS: CALCIUM 9.8 mg/dL (8.5-10.1); CREATININE 1.5 mg/dL (0.6-1.0); GFR 40.3; POTASSIUM 3.9 mmol/L (3.5-5.1)
[2016-10-29 07:00] VITALS: BP 140/73
[2016-10-29] MEDS ORDERED: CALCIUM CARB/VIT D3 500/200 TABLET. PO SCH (08:00)
[2016-10-29] MEDS: CARVEDILOL 12.5 MG TABLET. PO SCH (08:00)
[2016-10-29] MEDS: hydrALAZINE 25 MG TABLET PO SCH (08:34)
[2016-10-29] MEDS: HYDROcodone/APAP 7.5/325MG 1 TAB TABLET PO PRN ×2 (08:41→13:59)
[2016-10-29] MEDS ORDERED: POLYETHYLENE GLYCOL 3350 17 GM PACKET. PO SCH (09:00)
[2016-10-29] MEDS ORDERED: MULTIVITAMIN with MINERAL TABLET. PO SCH (09:00)
[2016-10-29] MEDS ORDERED: LOSARTAN POTASSIUM 50 MG TABLET. PO SCH (09:00)
[2016-10-29] MEDS ORDERED: ASPIRIN CHEWABLE 81 MG TABLET. PO SCH (09:00)
[2016-10-29] MEDS ORDERED: TRIAMTERENE/HCTZ 37.5/25MG TABLET. PO SCH (09:00)
[2016-10-29] MEDS ORDERED: ASCORBIC ACID 500 MG TABLET PO SCH (09:00)
[2016-10-29] MEDS ORDERED: OMEGA-3 FATTY ACIDS/FISH OIL 1,000 MG CAPSULE. PO SCH (09:00)
[2016-10-29] MEDS ORDERED: predniSONE 5 MG TABLET PO SCH (09:00)
[2016-10-29] MEDS ORDERED: amLODIPine BESYLATE 5 MG TABLET PO SCH (09:00)
[2016-10-29 11:00] VITALS: BP 101/53
--- NOTE | 2016-10-29 11:29 | DISCH ---
DISCHARGE INSTRUCTIONS Condition on Discharge Condition on Discharge: Stable Activity After Discharge Activity Instructions for Disc: No restrictions Diet after Discharge Diet after Discharge: Low Sodium 4 gm Follow-Up Follow up with: dr plummer DAR MI MD Oct 29, 2016 11:29
--- NOTE | 2016-10-29 11:31 | PDOC ---
Provider Note Provider Note [id number] DAR MI MD Oct 29, 2016 11:31
--- NOTE | 2016-10-29 12:05 | SSS ---
ADMIT DATE: 10/29/2016 HOSPITAL SUMMARY: An 81-year-old black female, patient of Dr. Cedillo, who came in with pain primarily in her left leg, mostly in the back of the left knee. She denied any shortness of breath or actual chest pain. She was afebrile. Vitals were stable. Blood count showed a mild anemia, hemoglobin of 10, which is normal for her, and chemistry profile showed elevated creatinine of 1.5 with a GFR of 40 apparently normal for her as well. TSH was normal as was troponins. Chest x-ray showed no acute change, and the Doppler study showed no DVT in the left leg, but there was 4.3 cm popliteal cyst present. She on admission to the floor denied any actual shortness of breath or chest pain and felt her pain was mainly in the back of her left knee. She does have a Bernardo cyst present, and I offered steroid injection to see if that would help, and she wished to see Dr. Cedillo as an outpatient and consider that at that time. She is comfortable to be followed as an outpatient at this point with stable vital signs. FINAL DIAGNOSES: 1. Bernardo cyst, left knee. 2. Anemia, etiology undetermined. 3. Chronic kidney disease, stage 3, stable. OPERATIONS, PROCEDURES, COMPLICATIONS, AND CONSULTATIONS: None. DISPOSITION: Home medications remain all the same. Good fluid intake, low sodium as she takes prednisone for temporal arteritis. She will see Dr. Cedillo next week and consider left knee injection regarding her popliteal cyst to see if that would be helpful. DAR MI MD DR: DEVAN/victor manuel JOB#: [id number] / [id number]
== END 2016-10-29 14:20 | disposition home or self-care (01) | DRG 558 ==
LOC: ER 13:21 → 5 NORTH 17:33
PROVIDERS: ADMIT Family Medicine; ATTEND Family Medicine
PROC: 3E0U33Z Introduction of Anti-inflammatory into Joints, Percutaneous Approach (ICD-10-PCS; principal; 2016-10-28)
DX: M71.22 Synovial cyst of popliteal space [Baker], left knee (principal); E78.5 Hyperlipidemia, unspecified; D64.9 Anemia, unspecified; I12.9 Hypertensive chronic kidney disease with stage 1 through stage 4 chronic kidney disease, or unspecified chronic kidney disease; N18.3 Chronic kidney disease, stage 3 (moderate); Z85.118 Personal history of other malignant neoplasm of bronchus and lung; Z90.710 Acquired absence of both cervix and uterus; Z87.891 Personal history of nicotine dependence; Z79.899 Other long term (current) drug therapy
CPT/HCPCS: 36415; 71010; 80048; 80076; 82553; 83880; 84443; 84484; 85007; 85027; 93005; 93971; G0379; J1650; J7512; 99285-25

== ENCOUNTER 2017-08-04 15:30 | Emergency (ER) | payer OTHER ==
[2017-08-04] MEDS: HYDROcodone/APAP 5/325MG 1 TAB TABLET PO (17:45)
== END 2017-08-04 18:08 | disposition home or self-care (01) ==
LOC: ER 15:30
DX: S63.502A Unspecified sprain of left wrist, initial encounter (principal); M25.462 Effusion, left knee; M25.461 Effusion, right knee; I10 Essential (primary) hypertension; Z90.710 Acquired absence of both cervix and uterus; W18.39XA Other fall on same level, initial encounter; Y93.89 Activity, other specified; Y92.89 Other specified places as the place of occurrence of the external cause; Y99.8 Other external cause status
CPT/HCPCS: 73110; 73562; 99284

== ENCOUNTER → 2018-01-31 | Outpatient (CLI) | payer OTHER ==
[2017-08-04 16:05] VITALS: BP 172/79
[~2018-01-31] MED LIST changes: +CONTRAST GIVEN. MC PRN; +CRESTOR5 MG PO; +IOHEXOL 300 MG/ML 100ML VIAL. IV ONE; +POLY17PO29 PO; +PRED-220 PO; -PROM118S2 PO; +PROM118S5 PO
--- NOTE | 2018-01-31 09:52 | RAD ---
CT of the chest with contrast 01/31/2018 INDICATION: History of lung neoplasm. History of partial lung resection. COMPARISON STUDY: CT of the chest with contrast November 04, 2011. TECHNIQUE: Multidetector CT imaging of the chest was performed following the administration of IV contrast. FINDINGS: Multiple hypodense thyroid nodules noted, which are less prominent than on prior exam. Some extension of the thyroid inferiorly into the upper mediastinum is noted. The configuration is relatively similar to comparison study. Heart size is top normal. Trace pericardial effusion is seen similar comparison studies. Thoracic aortic calcification is seen. No pathologically enlarged mediastinal adenopathy is identified. There is a 3 mm sub-solid nodule in the left lower lobe. This is not definitively seen on prior study from 2012. The appearance is nonspecific (axial image 45). Consider repeat imaging in 6 months to ensure stability or resolution and exclude neoplasm. No pneumothorax or pleural effusion is identified. Emphysematous changes are seen throughout the bilateral lungs similar to comparison study. No new infiltrate is identified. Limited visualization of the upper abdomen demonstrates bilateral renal cysts, similar comparison study. Minimal nodularity in the bilateral adrenal glands is similar to comparison study if not slightly less prominent. An acute abnormality of the upper abdomen is not identified. No evidence of acute osseous abnormality is seen. Mild degenerative changes of thoracic spine are noted. IMPRESSION: 1. Interval development of a 3 mm a solid nodule in the left lower lobe. The appearance is nonspecific. 6 month follow-up exam recommended. 2. Otherwise stable chest without evidence of acute cardiopulmonary process CT DOSING PQRS STATEMENT: One or more of the following individualized dose reduction techniques were utilized for this examination: 1. Automated exposure control 2. Adjustment of the mA and/or kV according to patient size 3. Use of iterative reconstruction technique Electronically signed by: Luis Manuel Champagne MD (01/31/2018 9:49 AM) [facility]
== END | disposition home or self-care (01) ==
LOC: CT 08:04
PROVIDERS: ATTEND Internal Medicine Hematology & Oncology
DX: E04.2 Nontoxic multinodular goiter (principal); I70.0 Atherosclerosis of aorta; N28.1 Cyst of kidney, acquired; R91.1 Solitary pulmonary nodule; M17.0 Bilateral primary osteoarthritis of knee; I12.9 Hypertensive chronic kidney disease with stage 1 through stage 4 chronic kidney disease, or unspecified chronic kidney disease; N18.3 Chronic kidney disease, stage 3 (moderate); J44.9 Chronic obstructive pulmonary disease, unspecified; Z86.2 Personal history of diseases of the blood and blood-forming organs and certain disorders involving the immune mechanism; Z87.891 Personal history of nicotine dependence; Z85.118 Personal history of other malignant neoplasm of bronchus and lung; Z90.710 Acquired absence of both cervix and uterus
CPT/HCPCS: 71260; Q9967

== ENCOUNTER → 2018-03-22 | Outpatient (CLI) | payer OTHER ==
[2017-08-04 16:05] VITALS: BP 172/79
[~2018-03-22] MED LIST changes: -CONTRAST GIVEN. MC PRN; -IOHEXOL 300 MG/ML 100ML VIAL. IV ONE; +REGADENOSON 0.4 MG/5 ML DISP.SYRIN. IV ONE
--- NOTE | 2018-03-22 13:08 | RAD ---
MR#: [id number] Date of Study: 03/22/2018 Ordering Physician: JAC LOUISE, Referring Physician: MIKE MITCHELL Tech: Leslie Tuttle NMTCB, ELO (R) (N) APPROVED REPORT Test Type: Pharmacological Stress Nurse/Tech: Ava Bobo R.N. Test Indications: HARRISON Cardiac History: htn,DM Medications: See Electronic Medical Record Medical History: See Electronic Medical Record Resting ECG: SA w/ frequent pac's Resting Heart Rate: 70 bpm Resting Blood Pressure: 130/64mmHg Pretest Chest Pain: No chest pain Nurse/Tech Notes S1S2, irregular rhythm, lungs CTA Consent: The procedure was explained to the patient in lay terms. Informed consent was witnessed. Renan eout was entered into [employer]. History and Stress Test performed by KAR[facility] Tuttle [employer]. Details Pharmacologic stress testing was performed using 0.4mg per 5ml of regadenoson given intravenously ove r 7-10 seconds. Stress Symptoms SOB POST EXERCISE Reason for Termination: Infusion complete Max HR: 106 bpm Max Blood Pressure: 129/55mmHg Blood Pressure response to exercise: Normal blood pressure response during stress. Heart Rate response to exercise: wnl Chest Pain: No. Arrhythmia: No. no change from abnormal baseline ST Change: No. INTERPRETATION Stress EKG Conclusion: The baseline EKG shows a sinus rhythm, PACs and a small septal Q wave. The stress EKG shows no significant changes from baseline. No EKG evidence of stressed induced ischemia. Imaging Protocol IMAGE PROTOCOL: Rest Tc-99m/stress Tc-99m 1 day Rest: Stress: Viability: Radiopharm.Tc99m UtwltvjeaXc60y Sestamibi Dose10.7mCi 32mCi Duration 15min. 13min. Img Date 03/22/2018 03/22/2018 Inj-Img [id number]. 60min. Rest Admin Site:IV - Right AntecubitalAdministrator:KARLY Tuttle Stress Admin Site: IV - Right AntecubitalAdministrator: BERTHA Russ, ARRT (R)(N) STRESS DATA End Diast. Vol.56.0mlEnd Syst. Vol.8.0ml Myocardial Sfyc485.0gEject. Mcncvmeo01.0% Stress Scores Regional WT1.00Summed WT3.00 Regional WM0.00Summed WM0.00 LV Perfusion The stress scans showed no significant defects. The rest scans showed no significant defects. Nuclear imaging shows no reversible ischemia or infarct. Wall Motion Normal left ventricular systolic function with ejection fraction of greater than 70%. LV Perf. Quant 17 Seg. SSS2.00 17 Seg. SRS3.00 17 Seg. SDS2.00 Stress Defect Extent (% LAD)0.00Rest Defect Extent (% LAD)0.00Rev. Defect Extent (% LAD)0.00 Stress Defect Extent (% LCX) 0.00Rest Defect Extent (% LCX)0.00Rev. Defect Extent (% LCX)0.00 Stress Defect Extent (% RCA)0.00Rest Defect Extent (% RCA)0.00Rev. Defect Extent (% RCA)0.00 Stress Defect Extent (% MCKENZIE)0.00Rest Defect Extent (% MCKENZIE)1.30Rev. Defect Extent (% MCKNEZIE)0.00 Conclusion 1. No EKG evidence of stress-induced ischemia. 2. Nuclear imaging shows no reversible ischemia or infarct. 3. Normal left ventricular systolic function with an ejection fraction of greater than 70%. 4. Low to moderately low risk Lexiscan nuclear stress test. Signed by : Kush Harmon MD Electronically Approved : 03/22/2018 13:07:33
--- NOTE | 2018-03-23 12:32 | RAD ---
MR#: [id number] Date of Study: 03/22/2018 Ordering Physician: JAC LOUISE, Referring Physician: JAC LOUISE, Tech: MAXWELL Perry, RDMS, RTR APPROVED REPORT Patient Location: OUT-PATIENT Indications htn Renal Artery Doppler Right Renal Artery Left Renal Arter y Proximal Proximal 128.5/24.2 cm/sec Mid 104.5/17.3 cm/secMid 70.9/19.1 cm/sec Distal 64.4/14.3 cm/secDistal 93.6/21.8 cm/sec Renal/Aorta Ratio 2.26Renal/Aorta Ratio 2.76 Prox. Resistive Index Prox. Resistive Index 0.81 Mid Resistive Index 0.83Mid Resistive Index 0.73 Distal Resistive Index 0.78Distal Resistive Index 0.77 Aortic Doppler VelocityWaveform Mid. Aorta 46.3 cm/sec Findings Grayscale images of the bilateral kidneys reveal multiple cysts. On the right there are 3 cysts with a complex one located in the mid pole measuring 1.6 x 1.4 x 1.2 cm. On the left again there are multi ple cysts noted with a complex one measuring approximately 3.1 x 2.9 x 3.6 cm. The aorta appears to be diffusely diseased with mild atherosclerosis. No focal stenosis is identified on minimal imaging. Spectral waveforms and color Doppler are grossly within normal limits. Renal to aortic velocities in the proximal mid and distal segments are within normal limits. No focal high-gra de stenosis is identified. Resistive indices are within normal limits. Critical Notification Critical Value: No <Conclusion> 1. No focal high-grade stenosis identified in the bilateral renal arteries. 2. Multiple cysts noted in the bilateral kidneys with simple and complex features noted. Routine dedi cated renal ultrasound and follow-up would be indicated and/or consideration for a CT scan. Signed by : Cecilio Whitley, Electronically Approved : 03/23/2018 12:31:32
== END | disposition home or self-care (01) ==
LOC: NM 08:51
PROVIDERS: ATTEND Internal Medicine Cardiovascular Disease
DX: R06.09 Other forms of dyspnea (principal); I10 Essential (primary) hypertension; E11.9 Type 2 diabetes mellitus without complications; N28.1 Cyst of kidney, acquired; I70.0 Atherosclerosis of aorta
CPT/HCPCS: 76770; 78452; 93017; 96374; 96375; 96376; A9500; J2785

== ENCOUNTER → 2018-03-22 | Outpatient (CLI) | payer OTHER ==
[2017-08-04 16:05] VITALS: BP 172/79
[~2018-03-22] MED LIST changes: -REGADENOSON 0.4 MG/5 ML DISP.SYRIN. IV ONE
--- NOTE | 2018-03-22 10:16 | CARD ---
MR#: [id number] Date of Study: 03/22/2018 Ordering Physician: JAC BLISS, Referring Physician: JAC BLISS Tech: Maria Alejandra Esparza RDCS APPROVED REPORT EXAM: Two-dimensional and M-mode echocardiogram with Doppler and color Doppler. Other Information Quality : GoodHR: 68bpm Rhythm : PVC's INDICATION Palpitations 2D DIMENSIONS Left Atrium(2D)2.4 (1.6-4.0cm)IVSd1.0 (0.7-1.1cm) Aortic Root(2D)3.1 (2.0-3.7cm)LVDd4.0 (3.9-5.9cm) LVOT Diameter2.1 (1.8-2.4cm)PWd1.2 (0.7-1.1cm) LVDs2.4 (2.5-4.0cm)FS (%) 38.5 % SV47.5 mlLVEF(%)69.4 (>50%) Aortic Valve AoV Peak Jadon.164.6cm/sAoV VTI30.9cm AO Peak GR.10.8mmHgLVOT Peak Jadon.107.6cm/s AO Mean GR.5mmHgAVA (VMAX)2.37cm2 POPEYE (VTI)2.23zu6BE P 1/2 Cusw713rh Mitral Valve MV E Fxjlecoq31.7cm/sMV E Peak Gr.6mmHg MV DECEL [id number] A Ndtpytfr329.2cm/s MV E Mean Gr.2mmHgE/A Ratio0.7 MV A [id number] Pulmonary Valve PV Peak Xwqzckjk659.2cm/s Tricuspid Valve TR P. Dztugkcm721ks/sRAP QUTTQVGN9vlQz TR Peak Gr.28gqTvXEWK84ohMb LEFT VENTRICLE The left ventricle is normal size. There is normal left ventricular wall thickness. The left ventricu lar systolic function is normal. The Ejection Fraction is 70%. There is normal LV segmental wall paul on. Transmitral Doppler flow pattern is Grade I-abnormal relaxation pattern. RIGHT VENTRICLE The right ventricle is normal size. There is normal right ventricular wall thickness. The right ventr icular systolic function is normal. ATRIA The left atrium size is normal. The right atrium size is normal. The interatrial septum is intact wit h no evidence for an atrial septal defect or patent foramen ovale as noted on 2-D or Doppler imaging. AORTIC VALVE The aortic valve is calcified but opens well. The aortic valve is trileaflet. Doppler and Color Flow revealed mild aortic regurgitation. There is no significant aortic valvular stenosis. MITRAL VALVE The mitral valve is normal in structure and function. There is no evidence of mitral valve prolapse. There is no mitral valve stenosis. Doppler and Color-flow revealed trace mitral regurgitation. TRICUSPID VALVE The tricuspid valve is normal in structure and function. Doppler and Color Flow revealed trace tricus pid regurgitation. There is moderate pulmonary hypertension. The PA pressure was estimated at 52 mmHg . There is no tricuspid valve prolapse or vegetation. There is no tricuspid valve stenosis. PULMONIC VALVE The pulmonary valve is normal in structure and function. Doppler and Color Flow revealed mild pulmoni c valvular regurgitation. There is no pulmonic valvular stenosis. GREAT VESSELS The aortic root is normal in size. The ascending aorta is normal in size. PERICARDIAL EFFUSION There is no evidence of significant pericardial effusion. Critical Notification Critical Value: No <Conclusion> The left ventricular systolic function is normal. The Ejection Fraction is 70%. There is normal LV segmental wall motion. Transmitral Doppler flow pattern is Grade I-abnormal relaxation pattern. Mild aortic regurgitation. Trace mitral regurgitation. Trace tricuspid regurgitation. There is moderate pulmonary hypertension. The PA pressure was estimated at 52 mmHg. There is no evidence of significant pericardial effusion. Signed by : Jac Bliss, Electronically Approved : 03/22/2018 10:15:49
== END | disposition home or self-care (01) ==
LOC: ECHO 08:05
PROVIDERS: ATTEND Internal Medicine Cardiovascular Disease
DX: I27.20 Pulmonary hypertension, unspecified (principal); I35.1 Nonrheumatic aortic (valve) insufficiency; I10 Essential (primary) hypertension; E11.9 Type 2 diabetes mellitus without complications; Z79.01 Long term (current) use of anticoagulants; Z87.891 Personal history of nicotine dependence
CPT/HCPCS: 93225; 93306

== ENCOUNTER 2018-04-30 06:41 | Outpatient (CLI) | payer OTHER ==
[~2018-04-30] VITALS: Ht 157.5 cm; Wt 54.0 kg
[2018-04-30] VITALS (8 sets, daily range): BP systolic 106–129; BP diastolic 56–66
[~2018-04-30 06:41] MED LIST changes: +HYDR-3165 PO; -HYDR-965 PO
[2018-04-30] MEDS ORDERED: PRED-220 PO (07:08)
[2018-04-30] MEDS ORDERED: IODIXANOL 320 MG/ML 100 ML VIAL. ONE (07:10)
[2018-04-30] MEDS ORDERED: LIDOCAINE 1% PF 2 ML VIAL. ONE (07:10)
[2018-04-30] MEDS ORDERED: METF10007 PO (07:11)
[2018-04-30] MEDS ORDERED: THYR15TA PO (07:11)
[2018-04-30] MEDS ORDERED: fentaNYL PF VIAL 100 MCG/2 ML VIAL ONE (07:39)
[2018-04-30] MEDS ORDERED: MIDAZOLAM HCL/PF 2 MG/2 ML VIAL. ONE (07:39)
[2018-04-30] MEDS ORDERED: NITROGLYCERIN 200 MCG/2 ML SYRINGE FOR CATH/VASC LAB. ONE (07:39)
[2018-04-30] MEDS ORDERED: HEPARIN for IV BOLUS 10,000 UNIT/10 ML VIAL. ONE (07:39)
[2018-04-30] MEDS ORDERED: VERAPAMIL 5 MG/2 ML VIAL. ONE (07:39)
[2018-04-30 07:42] LABS: CALCIUM 9.5 mg/dL (8.5-10.1); CREATININE 1.4 mg/dL (0.6-1.0); GFR 43.6; POTASSIUM 4.1 mmol/L (3.5-5.1)
[2018-04-30 07:44] LABS: HEMATOCRIT 30.2 % (36.0-47.0); RED BLOOD COUNT 3.66 x10^6/uL (3.50-5.40); RED CELL DISTRIBUTION WIDTH 14.9 % (11.5-14.5); WHITE BLOOD COUNT 7.3 x10^3/uL (4.0-11.0)
[2018-04-30 07:59] LABS: PROTHROMBIN TIME PATIENT 14.4 SEC (11.7-14.0)
[2018-04-30] MEDS ORDERED: LIDOCAINE 1% PF 30 ML VIAL. ONE (08:23)
[2018-04-30] MEDS ORDERED: LIDOCAINE 1% PF 30 ML VIAL. INJ ONE (08:45)
[2018-04-30] MEDS ORDERED: MIDAZOLAM HCL/PF 2 MG/2 ML VIAL. IV ONE (08:45)
[2018-04-30] MEDS ORDERED: fentaNYL PF VIAL 100 MCG/2 ML VIAL IV ONE (08:45)
[2018-04-30] MEDS ORDERED: IODIXANOL 320 MG/ML 100 ML VIAL. IART ONE (08:45)
--- NOTE | 2018-04-30 09:06 | PDOC ---
MODERATE SEDATION ASSESSMENT RISKS/ALTERNATIVES Risks/Alternatives Risks and alternatives of this type of sedation and procedure discussed with: RISK/ALTERNATIVES: Patient H & P ON CHART H & P H & P on chart and reviewed for co-morbid conditions and appropriate labs. H&P ON CHART: Yes STATUS PREG STATUS ASSESSED: N/A MEDS/ALLERGIES REVIEWED Meds/Allergies Reviewed Medications and Allergies including time and route of recently administered narcotics and sedatives. MEDS/ALLERGIES REVIEWED: Yes ASA RATING ASA RATING: II AIRWAY ASSESSMENT Airway Assessment Airway patency, oral function limitations, presence of caps, crowns, dentures, partials, and ability to extend neck assessed. AIRWAY ASSESSMENT: Yes MALLAMPATI SCORE MALLAMPATI SCORE: II PRE-SEDATION ASSESSMENT PRE-SEDATION ASSESSMENT: Yes JAC LOUISE MD Apr 30, 2018 09:05
--- NOTE | 2018-04-30 09:11 | CARD ---
MR#: [id number] Date of Study: 04/30/2018 Ordering Physician: JAC BLISS Referring Physician: JAC BLISS Tech: Julianna Vasquez RTR APPROVED REPORT Technologist: Julianna Vasquez RTR Nurse: Jaelyn Pelletier RN Procedure(s) performed: left heart catheterization, selective coronary angiography and left ventricul ography Moderate Sedation time: 20 minutes INDICATION The indication(s) include : Refractory dyspnea on exertion. PROCEDURE NARRATIVE After explaining the risks, benefits and alternative options, informed consent was obtained from paz ent. Patient was brought to the cardiac Melter Operator and her right groin was prepped and draped in the u sual fashion. 20 mL of 2% lidocaine was infiltrated into the skin and subcutaneous tissues for local anesthesia. Arterial access was obtained in the right common femoral artery and a 6 Mexican sheath was inserted. 6 Mexican JL4 and 6 Mexican JR4 catheters were used to perform selective angiography of the left and right coronary arteries. 6 Mexican pigtail catheter was used to perform left ventriculography . Patient tolerated the procedure well. Hemostasis was achieved using Angio-Seal. There were no immed iate complications. The following findings were noted. FINDINGS 1. Hemodynamics: Left ventricular end-diastolic pressure of 15 mmHg. No pullback gradient across th e aortic valve. 2. Left ventriculography: Normal left ventricle systolic function with ejection fraction estimated at 75%. No significant mitral regurgitation seen. 3. Coronary angiography: a. The left main coronary artery arose from the left sinus of Valsalva, gave rise to the left anteri or descending and left circumflex arteries and did not show any significant stenosis. b. The left anterior descending artery did not show any significant stenosis. c. The left circumflex artery did not show any significant stenosis. d. The right coronary artery was a dominant vessel arising from the right sinus of Valsalva that duong wed 20% stenosis in the midsegment. Conclusion 1. No significant coronary artery disease 2. Normal left ventricle systolic function with ejection fraction estimated at 75%. Signed by : Jac Bliss, Electronically Approved : 04/30/2018 09:10:02
[2018-04-30] MEDS ORDERED: NITROGLYCERIN SUBLINGUAL 0.4 MG BOTTLE OF 25. SL PRN (09:15)
== END 2018-04-30 11:00 | disposition home or self-care (01) ==
LOC: CCL 06:41
PROVIDERS: ATTEND Internal Medicine Cardiovascular Disease
DX: R06.09 Other forms of dyspnea (principal); I10 Essential (primary) hypertension; R00.2 Palpitations; R60.0 Localized edema; E78.5 Hyperlipidemia, unspecified; K57.30 Diverticulosis of large intestine without perforation or abscess without bleeding; M31.6 Other giant cell arteritis; J44.9 Chronic obstructive pulmonary disease, unspecified; Z85.118 Personal history of other malignant neoplasm of bronchus and lung; Z82.49 Family history of ischemic heart disease and other diseases of the circulatory system; Z90.710 Acquired absence of both cervix and uterus; Z98.890 Other specified postprocedural states; Z79.899 Other long term (current) drug therapy; Z79.84 Long term (current) use of oral hypoglycemic drugs; Z79.82 Long term (current) use of aspirin; Z72.0 Tobacco use
CPT/HCPCS: 36415; 80048; 85027; 85610; 93458; C1769; C1771; C1892; G0269; J1644; J2250; J3010; 99152

== ENCOUNTER → 2018-06-12 | Outpatient (CLI) | payer OTHER, MEDICARE ==
[2018-04-30 10:15] VITALS: BP 106/56
[~2018-06-12] MED LIST changes: +METF10007 PO; +THYR15TA PO
--- NOTE | 2018-06-12 13:53 | RAD ---
MR#: [id number] Date of Study: 06/12/2018 Ordering Physician: JAC LOUISE, Referring Physician: JAC LOUISE, Tech: MAXWELL Perry, RDMS, RTR APPROVED REPORT Patient Location : OUT-PATIENT Indications Lower Extremity Edema : Findings Grayscale images the bilateral saphenofemoral junctions do not reveal any evidence of thrombus. The right great saphenous vein measures 4.4 mm in the left great saphenous vein measures 5.2 mm. The bilateral greater and lesser saphenous veins do not show any evidence of reflux. There is a right-sided popliteal cyst likely most consistent with a Bernardo's cyst. It measures approxi mately 3.5 x 1.1 cm. Critical Notification Critical Value: No <Conclusion> 1. No evidence of reflux in the bilateral greater and lesser saphenous veins. Signed by : Cecilio Whitley, Electronically Approved : 06/12/2018 13:50:55
--- NOTE | 2018-06-12 14:23 | RAD ---
MR#: [id number] Date of Study: 06/12/2018 Ordering Physician: JAC LOUISE, Referring Physician: JAC LOUISE, Tech: MAXWELL Perry, RDMS, RTR APPROVED REPORT Bilateral Lower Extremity Venous Study for DVT Patient Location: OUT-PATIENT Indications Lower Extremity Edema: Bilateral Findings Grayscale images the left deep venous system reveal patency of the left common femoral vein with norm al compressibility. The left superficial femoral vein and popliteal veins appear to be noncompressible most consistent wi th a subacute thrombus. There is diminished venous flow noted in these vessels. The below-knee veins were not well visualized but grossly there appears to be thrombus in the tibial veins as well. The right common femoral vein appears to be patent with normal compressibility. The right superficial femoral vein in the mid segment appears to have a deep venous thrombosis. There is lack of compressibility. The popliteal segment and below-knee veins were not well visualized. Critical Notification Critical Value: Yes Physician Notified Date: 06/12/2018 Time: 220 pm <Conclusion> 1. Bilateral extensive deep venous thrombosis likely subacute in nature with left greater than right. 2. Patient will be notified of the results and likely will obtain CT scan of the chest to rule out a chronic thromboembolic disease and primary filling station laborer will initiate her on anticoagulation. Signed by : Cecilio Whitley, Electronically Approved : 06/12/2018 14:21:14
== END | disposition home or self-care (01) ==
LOC: US 10:21
PROVIDERS: ATTEND Internal Medicine Cardiovascular Disease
DX: I82.493 Acute embolism and thrombosis of other specified deep vein of lower extremity, bilateral (principal)
CPT/HCPCS: 93970

== ENCOUNTER → 2018-06-13 | Outpatient (CLI) | payer OTHER, MEDICARE ==
[2018-04-30 10:15] VITALS: BP 106/56
[2018-06-13 10:34] LABS: CREATININE 1.4 mg/dL (0.6-1.0); GFR 43.6
--- NOTE | 2018-06-13 14:53 | RAD ---
Ventilation perfusion exam History: Known DVT of the lower extremities bilaterally, shortness of breath for 2 weeks, chest pain for one day, history of right lung cancer and surgery Comparison: Chest radiograph the same day Findings: Ventilation perfusion examination was performed. Ventilation images were acquired after the patient inhaled 16 mCi of xenon-133 gas. Perfusion images were acquired after the patient was injected with 6 mCi of technetium 99m MAA. There are apparently some small mismatched perfusion defects on the left such as of the region of the lingula and likely also posteriorly of left upper lobe. There are also likely small mismatched perfusion defects near the right apex and also probably of the right lower lobe. impression: 1. There are mismatched perfusion defects bilaterally, considered high probability for pulmonary embolic disease. Patient has known deep venous thrombus. FOR INTERNAL CODING PURPOSES Critical result: Findings discussed with nurse Ventura in the office of Dr. Bliss at 06/13/2018 2:41 PM. RESULT CODE: (C) Electronically signed by: Tad Infante MD (06/13/2018 2:48 PM) [id number]
--- NOTE | 2018-06-13 15:08 | RAD ---
Chest, 2 views, 06/13/2018: HISTORY: Acute deep vein thrombosis Comparison is made to a study from 10/28/2016. The heart size is within normal limits. There is extensive calcific plaquing of the aorta. Surgical clips are projected over the right infrahilar region. There is blunting of the costophrenic angles bilaterally suggesting small pleural effusions. There is mild underlying atelectasis/infiltrate in the left base. There appear to be scattered parenchymal scars. The bony structures are demineralized. There are scattered spurs in the spine. IMPRESSION: 1. Extensive aortic atherosclerosis. 2. Small bilateral pleural effusions. 3. Mild left basilar atelectasis/infiltrate. Electronically signed by: Balaji uY MD (06/13/2018 3:03 PM) [facility]
== END | disposition home or self-care (01) ==
LOC: CT 09:10
PROVIDERS: ATTEND Internal Medicine Cardiovascular Disease
DX: I82.403 Acute embolism and thrombosis of unspecified deep veins of lower extremity, bilateral (principal); I70.0 Atherosclerosis of aorta; J90 Pleural effusion, not elsewhere classified; Z85.118 Personal history of other malignant neoplasm of bronchus and lung
CPT/HCPCS: 36415; 71046; 78582; 82565; 84520; 96374; A9540; A9558

== ENCOUNTER → 2018-09-28 | Outpatient (CLI) | payer OTHER ==
[2018-07-08 15:00] VITALS: BP 98/53
[~2018-09-28] MED LIST changes: +APIX5TAB PO; +DICY10CA3 PO
--- NOTE | 2018-09-28 16:56 | RAD ---
CT of the chest, abdomen and pelvis without contrast, 09/28/2018: HISTORY: Follow-up lung cancer No IV contrast was administered for this study as requested. The patient refused to drink oral contrast material. Comparison is made to a study from 06/26/2018. There is extensive calcific plaquing of the thoracic aorta. Scattered coronary artery calcifications are present. No mediastinal adenopathy is seen. There are multiple thyroid nodules in thyroid calcifications, more so on the right. There is moderate emphysematous change in the lungs. The small nodular density or fluid collection along the medial aspect of the oblique fissure on the left evident on the previous study has resolved. Left-sided pleural fluid has diminished. There is only trace amount of residual pleural fluid in the posterior gutter on the left. A left pleural drain is evident with its tip lying posterior medially. There is mild residual atelectasis or scarring in the inferior lingula on the left. There is been a previous right lower lobectomy. There is slight pleural thickening posteriorly on the right. No significant right-sided pleural fluid or right lung infiltrate is seen. The unopacified liver is unremarkable. A tiny radiopacity along the posterior wall the gallbladder suggests a tiny gallstone. The gallbladder wall is not thickened. The pancreas cannot be clearly from unopacified bowel but shows no specific abnormality. The spleen is of normal size. There are several bilateral renal cysts. The largest of these lies on the left and measures approximately 3 cm. No adrenal abnormality is detected. There is moderate calcific plaquing of the abdominal aorta and its branches without evidence of aneurysm. No abdominal or pelvic adenopathy is seen. Artifacts arising from a right hip prosthesis degrade image quality in the lower pelvis. There is colonic diverticulosis, most extensive in the sigmoid region. No paracolonic inflammatory process is seen. The stomach is low-lying extending into the upper pelvis. No free fluid or free air is evident in the abdomen or pelvis. Moderate multilevel degenerative change is present in the lumbar spine. There is a mild anterolisthesis at L4-5 due to facet joint arthropathy. IMPRESSION: 1. Status post right lower lobectomy with no specific evidence of tumor recurrence on the right. 2. A left pleural drain is in place with nearly complete resolution of the previously seen left pleural effusion. 3. No evidence of metastatic disease in the abdomen or pelvis. 4. Extensive colonic diverticulosis. 5. Possible cholelithiasis. 6. Additional chronic findings as described above. PQRS Compliance Statement: One or more of the following individualized dose reduction techniques were utilized for this examination: 1. Automated exposure control 2. Adjustment of the mA and/or kV according to patient size 3. Use of iterative reconstruction technique Electronically signed by: Balaji Yu MD (09/28/2018 4:53 PM) [facility]
== END | disposition home or self-care (01) ==
LOC: CT 13:07
PROVIDERS: ATTEND Internal Medicine Hematology & Oncology
DX: C34.31 Malignant neoplasm of lower lobe, right bronchus or lung (principal); I25.10 Atherosclerotic heart disease of native coronary artery without angina pectoris; E04.2 Nontoxic multinodular goiter; J43.9 Emphysema, unspecified; R91.1 Solitary pulmonary nodule; N28.1 Cyst of kidney, acquired; I70.0 Atherosclerosis of aorta; K57.30 Diverticulosis of large intestine without perforation or abscess without bleeding; M47.816 Spondylosis without myelopathy or radiculopathy, lumbar region; M12.88 Other specific arthropathies, not elsewhere classified, other specified site; M43.16 Spondylolisthesis, lumbar region
CPT/HCPCS: 71250; 74176

== ENCOUNTER → 2018-11-26 | Outpatient (CLI) | payer OTHER ==
[2018-07-08 15:00] VITALS: BP 98/53
--- NOTE | 2018-11-26 09:46 | RAD ---
Bilateral lower extremity venous duplex study 11/26/2018 8:00 AM Clinical History: Bilateral lower extremity edema, history of DVT Comparison: . Bilateral lower extremity venous ultrasound June 12, 2018 Technique: Using a combination of real time ultrasound imaging and color-flow and pulse Doppler imaging techniques along with graded compression and augmentation, duplex evaluation of the deep venous system of the both lower extremities was performed. Multiple images were obtained. Findings: There is no sonographic evidence of deep venous thrombosis involving the visualized deep venous structures of either lower extremity. Right popliteal fossa cyst measuring 5.6 x 1.1 x 1.0 cm noted. Impression: No evidence of deep venous thrombosis involving either lower extremity. Resolution of previously seen thrombus. Electronically signed by: Luis Manuel Champagne MD (11/26/2018 9:42 AM) [id number]
--- NOTE | 2018-11-26 14:02 | RAD ---
Chest radiograph 11/26/2018 12:00 AM INDICATION: Chest pain, leg swelling COMPARISON: July 02, 2018 TECHNIQUE: Frontal and lateral views of the chest are provided. FINDINGS: The cardiomediastinal silhouette is within normal limits. Stable small right pleural effusion. Improved left pleural effusion with left-sided thoracostomy tube in place. No pulmonary vascular congestion or pneumothorax. Pulmonary emphysema is suspected. There is bibasilar subsegmental atelectasis versus infiltrate. Surgical clips are identified in the mediastinum. There is ectasia of the descending thoracic aorta. Findings are stable. IMPRESSION: Left-sided thoracostomy tube is identified with improved aeration of the left lung base and near complete resolution of left-sided pleural effusion. Stable small right pleural effusion with adjacent compressive atelectasis versus infiltrate. Electronically signed by: Shahla Harrington MD (11/26/2018 2:00 PM) [id number]
== END | disposition home or self-care (01) ==
LOC: US 08:42
PROVIDERS: ATTEND Internal Medicine Critical Care Medicine
DX: J90 Pleural effusion, not elsewhere classified (principal); I77.810 Thoracic aortic ectasia; M79.89 Other specified soft tissue disorders
CPT/HCPCS: 71046; 93970

== ENCOUNTER → 2019-01-29 | Outpatient (CLI) | payer OTHER ==
[2018-07-08 15:00] VITALS: BP 98/53
[~2019-01-29] MED LIST changes: +CARV25TA2 PO; +FURO40TA4 PO; +GLIM1TAB2 PO; +PIOG30TA41 PO
--- NOTE | 2019-01-29 14:00 | RAD ---
CT CHEST WO CONTRAST Indication: Malignant neoplasm of the right lung Technique: Noncontrast CT imaging was performed of the chest, multiplanar reconstruction images submitted. One or more of the following individualized dose reduction techniques were utilized for this examination: 1. Automated exposure control 2. Adjustment of the mA and/or kV according to patient size 3. Use of iterative reconstruction technique. Comparison: September 28, 2018 Findings: There again has been right lower lobectomy. There is stable mild thickening of the pleura near the right lung base. There is a noncalcified right upper lobe nodule best seen image 19 series 2 about 0.8 cm in size with slightly irregular margins, previously about 0.4-0.5 cm. Small 0.4 cm noncalcified nodule along the left major fissure is similar. Another 0.5 cm nodule along the left fissure image 34 series 2 is similar. Mild fibrotic change or atelectasis/chronic consolidation of the lingula is similar. There is again moderate to severe emphysema with upper zone predominance. Previously seen small caliber left pleural drain is unchanged. There is again scattered calcified plaque of the thoracic aorta. There are again foci of nodularity of the thyroid gland grossly unchanged in appearance. No new significantly enlarged nodes are identified of the chest. There are again hypodense foci of the visualized bilateral kidneys greater on the left with density measurements of cysts. IMPRESSION: 1. There again has been right lower lobectomy. There is a larger noncalcified right upper lobe pulmonary nodule, metastasis in differential considerations. Short-term follow-up imaging in 3 months is advised given change. Subcentimeter size may be difficult to visualize on PET/CT. 2. There is emphysema. 3. There is again some coronary calcification. 4. There are again bilateral renal cysts. 5. There is again nodularity of the thyroid gland. Electronically signed by: Tad Infante MD (01/29/2019 1:58 PM) [id number]
== END | disposition home or self-care (01) ==
LOC: CT 08:08
PROVIDERS: ATTEND Internal Medicine Hematology & Oncology
DX: C34.31 Malignant neoplasm of lower lobe, right bronchus or lung (principal); J43.9 Emphysema, unspecified; I25.10 Atherosclerotic heart disease of native coronary artery without angina pectoris; I70.0 Atherosclerosis of aorta; N28.1 Cyst of kidney, acquired; R91.1 Solitary pulmonary nodule; Z90.89 Acquired absence of other organs
CPT/HCPCS: 71250

== ENCOUNTER 2019-02-08 08:37 | Outpatient (CLI) | payer OTHER ==
[~2019-02-08] VITALS: Ht 157.5 cm; Wt 54.0 kg
[2019-02-08] VITALS (7 sets, daily range): BP systolic 137–174; BP diastolic 64–77
[~2019-02-08 08:37] MED LIST changes: -CARV25TA2 PO; -FURO40TA4 PO; -GLIM1TAB2 PO; -PIOG30TA41 PO
[2019-02-08 09:10] LABS: BASO % 0 % (0-3); EOS # 0.1 x10^3/uL (0.0-0.7); EOS % 1 % (0-3); HEMATOCRIT 31.2 % (36.0-47.0); HEMOGLOBIN 10.1 g/dL (12.0-15.5); LYMPH % 16 % (24-48); MEAN CORPUSCULAR HEMOGLOBIN 27 pg (25-35); MEAN CORPUSCULAR HGB CONC 33 g/dL (31-37); MEAN CORPUSCULAR VOLUME 82 fL (79-100); MONO # 0.6 x10^3/uL (0.0-1.1); MONO % 9 % (0-9); NEUT # 4.5 x10^3/uL (1.8-7.7); NEUT % 74 % (31-73); PLATELET COUNT 211 x10^3/uL (140-400); RED BLOOD COUNT 3.81 x10^6/uL (3.50-5.40); RED CELL DISTRIBUTION WIDTH 15.3 % (11.5-14.5); WHITE BLOOD COUNT 6.1 x10^3/uL (4.0-11.0)
[2019-02-08 09:29] LABS: PROTHROMBIN TIME PATIENT 13.5 SEC (11.7-14.0)
[2019-02-08] MEDS ORDERED: LIDOCAINE WITH 8.4% SOD BICARB 3 ML DISP.SYRIN. ONE (09:34)
[2019-02-08] MEDS ORDERED: GLIM1TAB2 PO (09:42)
[2019-02-08] MEDS ORDERED: LIDOCAINE 1%/EPI 1:100,000 20 ML VIAL. ONE (09:42)
[2019-02-08] MEDS ORDERED: PIOG30TA41 PO (09:42)
[2019-02-08] MEDS ORDERED: FURO40TA4 PO (09:42)
[2019-02-08] MEDS ORDERED: ESOM40CA PO (09:42)
[2019-02-08] MEDS ORDERED: CARV25TA2 PO (09:42)
[2019-02-08] MEDS ORDERED: fentaNYL PF VIAL 100 MCG/2 ML VIAL ONE (09:48)
[2019-02-08] MEDS ORDERED: MIDAZOLAM HCL/PF 2 MG/2 ML VIAL. ONE (09:48)
[2019-02-08] MEDS ORDERED: LIDOCAINE 1%/EPI 1:100,000 20 ML VIAL. INJ ONE (10:15)
[2019-02-08] MEDS ORDERED: fentaNYL PF VIAL 100 MCG/2 ML VIAL IV ONE (10:15)
[2019-02-08] MEDS ORDERED: MIDAZOLAM HCL/PF 2 MG/2 ML VIAL. IV ONE (10:15)
--- NOTE | 2019-02-08 11:55 | NUR ---
Discharge Note: JESSICA IRVIN Discharge instructions and discharge home medications reviewed with Patient and her daughter and a copy given. All questions have been answered and understanding verbalized. The following instructions and handouts were given: Post Moderate Sedation, Incision care. Discontinued lines and drains: Pt having VQ scan in Nuc Med. IV to be discontinued by Nuc Med when VQ scan complete. Patient discharged to [facility] with daughter via wheel chair.
--- NOTE | 2019-02-08 13:10 | RAD ---
NUCLEAR MEDICINE VENTILATION PERFUSION SCAN History: Right lung cancer 10 years ago. Shortness of air. History of DVT. Comparison: Two-view chest, same day. Technique: Patient initially ventilated with 14.6 mCi of xenon-133 gas. Anterior and posterior imaging of the lungs during initial breath-hold, equilibrium and, washout phase images is performed. Perfusion portion performed after intravenous administration of 5.5 mCi Technetium 99m MAA. Multiple projection planar images of the lungs were obtained. Findings: The initial breath-hold ventilation images demonstrate relative photopenia at the lung periphery. There is no retention of tracer on the washout phase images. Perfusion images demonstrate no mismatched segmental perfusion defects. IMPRESSION: Low probability for pulmonary embolus. Electronically signed by: Nate Cifuentes MD (02/08/2019 1:07 PM) [id number]
--- NOTE | 2019-02-08 14:40 | RAD ---
02/08/2019 12:35 PM Procedure: Removal of the left tunneled thoracostomy tube Clinical Indication: Patient no longer needs recurrent drainage secondary to spontaneous pleurodesis. Discussion: The procedure was explained in its entirety to the patient or the patients designated employee relations representative by a member of the treatment team, including a discussion of the risks, benefits and commonly accepted alternatives to the procedure, as well as the expected consequences of no therapy whatsoever. Discussion of the risks included, but was not limited to, those that are most frequent and those that are rare but possibly severe or life-threatening, as well as the possibility of unforeseen complications. All elements of maximal sterile barrier technique including the use of a cap, mask, sterile gown, sterile gloves, large sterile sheet, appropriate hand hygiene, and 2% chlorhexidine for cutaneous antisepsis (or acceptable alternative antiseptic per current guidelines) were followed for this procedure. The left chest was prepped and draped as described above. The pre-existing catheter was evaluated under fluoroscopy and found to be in acceptable position. The skin overlying the cuff was anesthetized with 1% lidocaine. Using blunt dissection the subcutaneous cuff was freed. The catheter was removed with traction. Sterile dressings were applied. No immediate complications were identified. Total fluoroscopy time: 0.3 min Dose area product: 0.3 Gycm2 The procedures performed under conscious sedation including continuous cardiopulmonary monitoring via dedicated sedation nurse. [id number] sedation time: 18 minutes Impression: Removal of left sided tunnel thoracostomy tube
--- NOTE | 2019-02-08 17:00 | RAD ---
Chest, PA and Lateral: Technique: PA and lateral views of the chest were obtained. History: Shortness of breath. Comparison: 11/26/2018. Findings: The cardiomediastinal silhouette grossly appears unremarkable. There is no acute infiltrate or visualized pneumothorax identified. Mild right pleural thickening unchanged. Mild degenerative changes thoracic spine. IMPRESSION: No acute cardiopulmonary findings. Electronically signed by: Jerzy Sosa MD (02/08/2019 4:57 PM) [place] [id number]
== END 2019-02-08 12:55 | disposition home or self-care (01) ==
LOC: INTRAD 08:37
PROVIDERS: ATTEND Internal Medicine Critical Care Medicine
DX: Z45.2 Encounter for adjustment and management of vascular access device (principal); Z79.01 Long term (current) use of anticoagulants
CPT/HCPCS: 32552; 36415; 71046; 78582; 85025; 85610; 85730; 96374; 99152; A9540; A9558; J2250; J3010; J3490

== ENCOUNTER → 2019-07-08 | Outpatient (CLI) | payer OTHER, MEDICAID ==
[2019-02-08 11:30] VITALS: BP 137/64
[~2019-07-08] MED LIST changes: +CARV25TA2 PO; +FURO40TA4 PO; +GLIM1TAB7 PO; +PIOG30TA41 PO
--- NOTE | 2019-07-08 17:23 | CARD ---
MR#: [id number] Date of Study: 07/08/2019 Ordering Physician: JAC LOUISE, Referring Physician: JAC LOUISE, Tech: Lakisha Ralph APPROVED REPORT EXAM: Two-dimensional and M-mode echocardiogram with Doppler and color Doppler. Other Information Quality : AverageHR: 72bpm INDICATION Chronic Diastolic Heart Failure RISK FACTORS Hypertension Hyperlipidemia Previous smoker 2D DIMENSIONS Left Atrium(2D)2.5 (1.6-4.0cm)IVSd1.3 (0.7-1.1cm) Aortic Root(2D)3.3 (2.0-3.7cm)LVDd4.4 (3.9-5.9cm) LVOT Diameter1.9 (1.8-2.4cm)PWd1.3 (0.7-1.1cm) LVDs2.5 (2.5-4.0cm)FS (%) 43.2 % SV66.5 mlLVEF(%)74.5 (>50%) Aortic Valve AoV Peak Jadon.118.7cm/sAoV VTI24.8cm AO Peak GR.5.6mmHgLVOT Peak Jadon.100.4cm/s LVOT VTI 19.85cmAO Mean GR.3mmHg POPEYE (VMAX)2.32up4QBN (VTI)2.37cm2 AI P 1/2 [id number] Mitral Valve MV E Bkxvvobm61.8cm/sMV DECEL [id number] MV A Iqophsqe06.9cm/sMV OIT18qc E/A Ratio0.6MVA (PHT)2.38cm2 TDI E/Lateral E'11.0E/Medial E'9.8 Pulmonary Valve PV Peak [place]62.3cm/sPV Peak Grad.3mmHg Tricuspid Valve TR P. Vsixuprx094bx/sRAP EKQEIVNT7zlPj TR Peak Gr.79dbTgRSDP05fyJl Pulmonary Vein S1 Hbvcznvg73.8cm/sD2 Zyqebqvu39.1cm/s PVa [id number] LEFT VENTRICLE The left ventricle is normal size. There is mild to moderate concentric left ventricular hypertrophy. The left ventricular systolic function is normal and the ejection fraction is within normal range. T he Ejection Fraction is 60-65%. There is normal LV segmental wall motion. Transmitral Doppler flow pa ttern is Grade I-abnormal relaxation pattern. RIGHT VENTRICLE The right ventricle is normal size. There is normal right ventricular wall thickness. The right ventr icular systolic function is normal. ATRIA The left atrium size is normal. The right atrium size is normal. The interatrial septum is intact wit h no evidence for an atrial septal defect or patent foramen ovale as noted on 2-D or Doppler imaging. AORTIC VALVE The aortic valve is thickened but opens well. Doppler and Color Flow revealed mild to moderate aortic regurgitation. There is no significant aortic valvular stenosis. MITRAL VALVE The mitral valve is normal in structure and function. There is no evidence of mitral valve prolapse. There is no mitral valve stenosis. Doppler and Color-flow revealed trace mitral regurgitation. TRICUSPID VALVE The tricuspid valve is normal in structure and function. Doppler and Color Flow revealed trace tricus pid regurgitation with an estimated PAP of 30 mmHg. There is no tricuspid valve stenosis. PULMONIC VALVE The pulmonic valve is not well visualized. Doppler and Color Flow revealed mild pulmonic valvular reg urgitation. There is no pulmonic valvular stenosis. GREAT VESSELS The aortic root is normal in size. The IVC is normal in size and collapses >50% with inspiration. PERICARDIAL EFFUSION There is no evidence of significant pericardial effusion. Critical Notification Critical Value: No <Conclusion> The left ventricular systolic function is normal and the ejection fraction is within normal range. Th e Ejection Fraction is 60-65%. There is normal LV segmental wall motion. Doppler and Color Flow revealed mild to moderate aortic regurgitation. Signed by : Cecilio Whitley, Electronically Approved : 07/08/2019 17:23:23
== END | disposition home or self-care (01) ==
LOC: ECHO 13:07
PROVIDERS: ATTEND Internal Medicine Cardiovascular Disease
DX: I08.8 Other rheumatic multiple valve diseases (principal); I50.32 Chronic diastolic (congestive) heart failure
CPT/HCPCS: 93306

== ENCOUNTER → 2021-08-26 | Outpatient (CLI) | payer OTHER, MEDICAID ==
[2019-02-08 11:30] VITALS: BP 137/64
--- NOTE | 2021-08-26 16:35 | KCIC ---
EXAMINATION: XR CHEST 2V CLINICAL HISTORY: Pleural effusion. EXAM DATE/TIME: 08/26/2021 12:25 PM COMPARISON: 02/08/2019 FINDINGS: Lines, Tubes, and Devices: None. Cardiomediastinal Silhouette: Normal heart size. Aortic atherosclerotic calcification. Lungs and Pleura: Moderate left pleural effusion with overlying airspace disease. Similar to slightly increased right basilar pleural thickening, cannot exclude superimposed small pleural effusion. Mild right basilar opacities. Nonspecific diffuse interstitial opacities, similar to slightly increased c ompared to the prior exam. Postoperative changes in the medial right lower lung zone. Bones and Soft Tissues: Degenerative changes in the thoracic spine. IMPRESSION: Moderate left pleural effusion with overlying airspace disease. Questionable small right pleural effusion versus increased basilar pleural thickening and mild overly ing airspace disease. Electronically signed by: Tunde Hyman DO (08/26/2021 4:33 PM) [id number]
== END ==
LOC: KCIC 12:21
PROVIDERS: ATTEND Family Medicine
DX: J90 Pleural effusion, not elsewhere classified (principal); R91.8 Other nonspecific abnormal finding of lung field; M47.814 Spondylosis without myelopathy or radiculopathy, thoracic region; Z98.890 Other specified postprocedural states
CPT/HCPCS: 71046